=== PATIENT | female | born 1940 | race Caucasian/White ===

== ENCOUNTER 2018-06-18 07:59 | Inpatient (IN) ==
--- NOTE | 2018-06-10 12:10 | XRay Report ---
CLINICAL INFORMATION: History of pulmonary fibrosis - shortness of breath COMPARISON: 01/30/2018. FINDINGS: Multiple small hiatal hernia noted. The heart is borderline enlarged, but unchanged. Mediastinum and pulmonary vessels are unremarkable. Moderate diffuse interstitial fibrosis is unchanged. No new pulmonary abnormalities and no effusion IMPRESSION: Moderate diffuse interstitial fibrosis - stable since comparison study four months ago Interpreted and Authenticated by: Adarsh Valentine 06/10/18
[2018-06-10 13:33] LABS: Basophils # (Auto) 0.1 K/mcL (0.0-0.3); Basophils % (Auto) 0.7 % (0.0-2.0); Eosinophils # (Auto) 0.5 K/mcL (0.0-0.7); Eosinophils % (Auto) 5.9 % (0.0-7.0); Lymphocytes # (Auto) 2.4 K/mcL (1.5-4.8); Lymphocytes % (Auto) 25.6 % (15.5-49.0); Mean Cell Volume 87.8 fL (80.0-100.0); Mean Corpuscular HGB Conc 33.4 g/dL (31.0-36.0); Mean Corpuscular Hemoglobin 29.4 pg (26.0-34.0); Monocytes # (Auto) 0.9 K/mcL (0.1-0.9); Monocytes % (Auto) 9.8 % (1.0-12.0); Platelet Count 261 K/mcL (140-440); RBC 4.03 M/mcL (4.00-5.20); Red Cell Distribution Width 14.4 % (11.5-14.5)
[2018-06-10 13:35] LABS: Blood Urea Nitrogen 25 mg/dl (8-23)
[2018-06-10 13:39] LABS: Appearance,Urine CLEAR; Bacteria,Urine 0 /hpf (0); Bilirubin,Urine NEG (NEG); Color,Urine YELLOW; Glucose,Urine (UA) NEGATIVE (NEG); Leukocyte Esterase,Urine 25 /uL (NEG); Mucus,Urine FEW /hpf (0); Protein,Urine NEG (NEG); Specific Gravity,Urine 1.021 (1.000-1.035); Urine Blood NEG mg/dL (<0.03); Urine RBC 0 /hpf (0-1); Urine Squamous Epithelial Cell 2 /hpf (0-4); Urine WBC 2 /hpf (0-4); Urobilinogen,Urine NEG (NEG)
[~2018-06-18 07:59] MED LIST: CELECOXIB 200 MG CAPSULE PO SCH; PREGABALIN 75 MG CAPSULE PO SCH; ceFAZolin 1 GM VIAL IV SCH; oxyCODONE 10 MG TAB.ER.12H PO SCH
[2018-06-18] MEDS ORDERED: SCOPOLAMINE 1 PATCH PATCH TOPICAL ONE (08:46)
[2018-06-18] MEDS ORDERED: IPRATROPIUM/ALBUTEROL 3 ML AMPUL.NEB NEB ONE (10:15)
[2018-06-18] MEDS ORDERED: MIDAZOLAM 5 MG/5 ML VIAL IV ONE (10:40)
[2018-06-18] MEDS ORDERED: HETASTARCH 6% 500 ML BAG IV ONE (10:40)
[2018-06-18] MEDS ORDERED: LIDOCAINE HCL/PF 100 MG/5 ML SYRINGE IV ONE (10:40)
[2018-06-18] MEDS ORDERED: DEXAMETHASONE 10 MG/ML VIAL IV ONE (10:40)
[2018-06-18] MEDS ORDERED: PROPOFOL 200 MG/20 ML VIAL IV ONE (10:40)
[2018-06-18] MEDS ORDERED: fentaNYL 250 MCG/5 ML VIAL IV ONE (10:40)
[2018-06-18] MEDS ORDERED: SUCCINYLCHOLINE 20 MG/ML ML IV ONE (10:40)
[2018-06-18] MEDS ORDERED: TRANEXAMIC ACID 1,000 MG/10 ML VIAL IV ONE ×2 (10:40→12:17)
[2018-06-18] MEDS ORDERED: PHENYLEPHRINE 10 MG/ML VIAL IV ONE (10:40)
[2018-06-18] MEDS ORDERED: ONDANSETRON 4 MG/2 ML VIAL IV ONE (10:40)
[2018-06-18] MEDS ORDERED: fentaNYL 100 MCG/2 ML VIAL IV PRN (11:34)
[2018-06-18] MEDS ORDERED: METHOCARBAMOL 1,000 MG/10 ML VIAL IV PRN (11:34)
[2018-06-18] MEDS ORDERED: ePHEDrine 50 MG/ML AMPUL IV PRN (11:34)
[2018-06-18] MEDS ORDERED: NALOXONE HCL 0.4 MG/ML VIAL IV PRN (11:34)
[2018-06-18] MEDS ORDERED: diphenhydrAMINE 50 MG/ML VIAL IV PRN (11:34)
[2018-06-18] MEDS ORDERED: MEPERIDINE 25 MG/ML SYRINGE IV PRN (11:34)
[2018-06-18] MEDS ORDERED: PROMETHAZINE 25 MG/ML VIAL IV PRN (11:34)
[2018-06-18] MEDS ORDERED: FLUMAZENIL 0.1 MG/ML ML IV PRN (11:34)
[2018-06-18] MEDS ORDERED: ACETAMINOPHEN 1,000 MG/100 ML BOTTLE IV ONE (11:34)
[2018-06-18] MEDS ORDERED: ONDANSETRON 4 MG/2 ML VIAL IV PRN ×2 (11:34→12:17)
[2018-06-18] MEDS ORDERED: ATROPINE SULFATE 0.4 MG/ML VIAL IV PRN (11:34)
[2018-06-18] MEDS ORDERED: METOPROLOL TARTRATE 5 MG/5 ML VIAL IV PRN (11:34)
[2018-06-18] MEDS ORDERED: IPRATROPIUM/ALBUTEROL 3 ML AMPUL.NEB NEB PRN (11:34)
[2018-06-18] MEDS ORDERED: LACTATED RINGERS 1,000 ML IV SCH (11:45)
[2018-06-18] MEDS ORDERED: KETOROLAC 15 MG/ML VIAL IV PRN (12:17)
[2018-06-18] MEDS ORDERED: BISACODYL 10 MG SUPP.RECT PR PRN (12:17)
[2018-06-18] MEDS ORDERED: POLYETHYLENE GLYCOL 3350 17 GM PACKET PO PRN (12:17)
[2018-06-18] MEDS ORDERED: MAGNESIUM HYDROXIDE 30 ML ORAL.SUSP PO PRN (12:17)
[2018-06-18] MEDS ORDERED: FLEETS ADULT ENEMA PR PRN (12:17)
[2018-06-18] MEDS ORDERED: BENZOCAINE/MENTHOL 1 LOZENGE PO PRN (12:17)
--- NOTE | 2018-06-18 12:17 | Brief Operative Note ---
Date of procedure: 06/18/18 Pre-op diagnosis: Left shoulder RTC tear arthropathy Post-op diagnosis: same Procedure: Left reverse total shoulder arthroplasty Grafts/Implants: Yes (Tornier 4 humeral, 6 insert, 36 offset glenosphere) Anesthesia: spinal, GLMA Findings: absent RTC Complications: none Surgeon: Rosalio Conway Business Administrator: Peter Borrego Estimated blood loss (cc): 50 Specimens Removed/Pathology: none sent Condition: stable Disposition: PACU
[2018-06-18] MEDS ORDERED: BUPIVACAINE W/EPI 0.5% 50 ML VIAL IJ ONE (12:37)
--- NOTE | 2018-06-18 13:01 | Operative Note ---
DATE OF OPERATION: 06/18/2018 PREOPERATIVE DIAGNOSIS: Left shoulder rotator cuff tear arthropathy. POSTOPERATIVE DIAGNOSIS: Left shoulder rotator cuff tear arthropathy. PROCEDURE PERFORMED: Left reverse total shoulder arthroplasty placing a Tornier Aequalis Ascend Flex size 4 humeral stem, a standard baseplate with a low eccentricity tray, and a +6 polyethylene insert on a 36, 2 mm offset glenosphere. SURGEON: Rosalio Conway M.D. SUPERVISORY INVESTIGATIVE SPECIALIST: Tomas Shore PA-C. ANESTHESIA: General. DRAINS: None. SPECIMENS: Bone cuts which were discarded. BLOOD LOSS: 150 mL. COMPLICATIONS: None. POSTOPERATIVE CONDITION: Stable. INDICATIONS FOR SURGERY: This is a 77-year-old female who has had longstanding progressive worsening left shoulder pain. Radiographs showed severe proximal migration of the humeral head with articulation under the acromion as well as arthrosis. FINDINGS AT SURGERY: Absent rotator cuff, other than some fibers remaining of the subscapularis. Post implantation showed a stable shoulder with good range of motion. PROCEDURE IN DETAIL: The patient had been seen preoperatively. Informed consent had been obtained after discussion of risks and benefits of surgery. Risks including, but not limited to, bleeding, possibly requiring transfusion; infection, possibly requiring implant removal and prolonged IV antibiotics; injury to nerves, blood vessels, and other surrounding structures; anesthetic risks; incomplete or no resolution of symptoms; stiffness; dislocation; fracture; possibility of needing further revision surgery. She understood these risks and wished to proceed. Correct operative site was marked, and the patient was taken to the operating room. General anesthesia was induced. She was carefully positioned in the beach chair position and pressure points carefully padded. Left shoulder and upper extremity were then carefully prepped and draped in normal sterile fashion, and a time-out was performed verifying patient name, operative site, and plan. All skin surfaces were covered with Ioban and then a standard deltopectoral incision was made with scalpel through skin and subcutaneous tissue. Hemostasis was obtained with Bovie cautery. Irrisept was irrigated and then careful blunt dissection taken medial to the cephalic vein and the interval taken down onto the joint. Subdeltoid space was developed with blunt finger dissection. Conjoined tendon was identified and blue handle retractor placed underneath. The biceps tendon was absent. There were some fibers remaining of the subscapularis, so I performed a lesser tuberosity osteotomy, and a traction stitch was placed around that. We then dislocated the humeral head out anteriorly. We then made a hole in the proximal humerus and then using a 30-degree retroversion angle made our humeral cut. We then increased our sounders up to a size 4 and then broached up to a size 4. This sat just a little bit above our head cut. We did calcar plane to ensure no bone impeding the stem from seating. We then placed a cut protector and subluxed the humerus posteriorly and exposed the glenoid. Labrum was excised circumferentially and capsule was released, carefully staying directly on bone inferiorly. We then placed the guide pin with the 10 degree cephalad tilt and then reamed until we had cancellous bone inferiorly and had just made contact superiorly. We then drilled for the central peg and then drilled our central screw. We chose a 35 screw with a 25 baseplate. We irrigated Irrisept. After a minute we pulse lavaged with saline and then advanced the screw and the baseplate until it was fully seated. We then drilled and placed the peripheral screws. Superior and inferior were locking. Anteriorly, there was not enough bone to place a screw. Posteriorly, we placed a short nonlocking screw. We then chose a 2 mm offset glenosphere which was opened. This was impacted and then the screw tightened. We then redislocated the humerus and trialed an offset baseplate with a 6 insert. There was good tension, so we went ahead and redislocated. Definitive implants were opened and the construct made on the back table. We irrigated the humeral canal with Irrisept. After a minute we pulse lavaged copiously with saline. The stem was impacted and then the shoulder reduced with good tension and range of motion was checked with good stability. We made two drill holes in the bicipital groove and then I used a #2 FiberWire [id number] around the lesser tuberosity fragment to repair what remained of the subscap and then another irrigation. We then closed the deltopectoral interval with a running #1 Vicryl. Final Irrisept irrigation was done, after a minute final pulse lavage, and then Monocryl for subcutaneous and tima for skin. Xeroform and sterile dressing applied. Arm was placed in an abductor immobilizer. The patient was awakened, extubated, and transferred to recovery in stable condition. [email or web address] Job ID: [id number] Doc ID: [id number] Rosalio Conway MD
[2018-06-18] MEDS: 0.9 % SODIUM CHLORIDE 1,000 ML IV SCH (13:38)
[2018-06-18] MEDS: 0.9 % SODIUM CHLORIDE 10 ML SYRINGE IV SCH ×2 (13:40→21:15)
--- NOTE | 2018-06-18 15:07 | XRay Report ---
HISTORY: Postop shoulder replacement FINDINGS: Patient has a reverse left shoulder prosthesis. On the AP image the prosthetic humeral head appears subluxed inferiorly, relative to the glenoid. However, on the axillary view there is normal alignment. The apparent subluxation on the AP view is probably due to obliquity of the x-ray beam relative to the joint space. There is no fracture or abnormal soft tissue calcification. IMPRESSION: Well-positioned left shoulder prosthesis Interpreted and Authenticated by: Raciel Goetz 06/18/18
[2018-06-18] MEDS: HYDROcodone/APAP 5/325MG TABLET PO PRN ×2 (16:09→23:58)
[2018-06-18] MEDS: ceFAZolin 1 GM VIAL IV SCH (17:44)
[2018-06-18] MEDS ORDERED: OXYBUTYNIN CHLORIDE 5 MG TAB.XL.24H PO SCH (21:00)
[2018-06-18] MEDS ORDERED: BUDESONIDE 1 PUFF INHALER INH PRN (21:00)
[2018-06-18] MEDS ORDERED: SENNOSIDES 1 TABLET PO SCH (21:00)
[2018-06-18] MEDS: DOCUSATE SODIUM 100 MG CAPSULE PO SCH (21:14)
[2018-06-19] MEDS: ceFAZolin 1 GM VIAL IV SCH (01:40)
[2018-06-19] MEDS: 0.9 % SODIUM CHLORIDE 1,000 ML IV SCH (02:42)
[2018-06-19] MEDS: 0.9 % SODIUM CHLORIDE 10 ML SYRINGE IV SCH (04:52)
[2018-06-19] MEDS ORDERED: OMEPRAZOLE 20 MG CAPSULE PO SCH (07:30)
--- NOTE | 2018-06-19 07:46 | Discharge Summary ---
Ortho Discharge - TSA - Patient Instructions Diet: Regular Diet Activity: activity as tolerated, non weight bearing (LUE) Total Shoulder Protocol: Leave immobilizer in place except for bathing and ROM. Abduction pillow. Continue to wear sling until seen by physician. Codman Pendulum : These exercises use momentum produced by your body to move your shoulder joint. Bend your knees and shift your weight to your front leg, then back, allowing your arm to swing in the same directions. Using the same technique, alternately shift your weight between your right and left legs, allowing your arm to swing from side to side. These exercises are also performed in counterclockwise and clockwise circular motions. Typically these exercises are performed several times per day, for a set number repetitions or minutes, such as 20 times in a row or 5 minutes at a time. Dressing Care: Misael Dion - leave on for 5 days - Follow Up Plan Follow Up Appointments: Peter Borrego PA-C [Physician Senior Electrical Designer] - Disposition: Home Health Service Prognosis: Good Rehab Potential: Good - Orders For Discharge Additional Discharge Orders: Physical Therapy at Discharge - TSA Location: None Selected Brace/Splint Location: None Selected
[2018-06-19] MEDS: DOCUSATE SODIUM 100 MG CAPSULE PO SCH (07:58)
[2018-06-19] MEDS: HYDROcodone/APAP 5/325MG TABLET PO PRN (08:02)
[2018-06-19] MEDS ORDERED: buPROPion 150 MG TAB.SR.12H PO SCH (09:00)
[2018-06-19] MEDS ORDERED: DULoxetine 30 MG CAPSULE PO SCH (09:00)
[2018-06-19] MEDS ORDERED: LOSARTAN 50 MG TABLET PO SCH (09:00)
== END 2018-06-19 10:45 | disposition home health service (06) | DRG 483 ==
LOC: MEDSUR 07:59
PROVIDERS: ADMIT Orthopaedic Surgery; ATTEND Orthopaedic Surgery